=== PATIENT | male | born 1985 | race Two or more races ===

== ENCOUNTER 2021-07-24 20:29 | Emergency (ER) | payer OTHER ==
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
== END 2021-07-24 23:03 | disposition home or self-care (01) ==
LOC: MW.ED 20:29
DX: S16.1XXA Strain of muscle, fascia and tendon at neck level, initial encounter (principal); S39.012A Strain of muscle, fascia and tendon of lower back, initial encounter; V49.40XA Driver injured in collision with unspecified motor vehicles in traffic accident, initial encounter; Y92.410 Unspecified street and highway as the place of occurrence of the external cause
CPT/HCPCS: 72040; 72040-26; 72100; 72100-26; 99284-25